=== PATIENT | female | born 1975 | race Caucasian/White ===

== ENCOUNTER 2018-05-23 18:39 | Inpatient (IN) | payer BC ==
[2018-05-23] VITALS (16 sets, daily range): BP systolic 96–142; BP diastolic 50–77; PULSE 64–84; TEMP 98.2–98.9
[~2018-05-23] VITALS: Ht 170.2 cm; Wt 81.4 kg
--- NOTE | 2018-05-23 18:45 | NUR ---
G1 at 38 weeks and 5 days arrives to unit ambulatory with complaint of leakage of fluid. Pt states she was at her appointment in the office and her water broke while she was there around 1814. Pt reports some vaginal bleeding, denies feeling contractions, and reports good movement. Pt denies headaches, visual changes, or RUQ pain. Pt oriented to room, call light within reach, and bed in low and blocked position. EFM and toco explained and applied. SVE /-3, amnitrace positive. Pt appears grossly ruptured with bloody fluid with SVE. Pt is an elective primary c/section. Dr. Sevilla notified.
--- NOTE | 2018-05-23 19:20 | NUR ---
Report received from PAUL Velazquez. Consents and assessment completed. Incision area prepped. 1950: Monitors off and pt ambulatory to OR. Spouse at pts side.
[2018-05-23 19:32] LABS: BASO % 0.3 % (0.0-2.0); EOS # 0.1 (0.0-0.7); EOS % 0.7 % (0-4.0); GRAN # 6.9 (1.4-6.5); GRAN % 75.2 % (42.2-75.2); HEMOGLOBIN 11.3 g/dl (12.5-16.0); LYMPH # 1.4 (1.2-3.4); LYMPH % 15.1 % (20.0-51.0); MEAN CELL VOLUME 87 fl (80.0-100.0); MEAN CORPUSCULAR HEMOGLOBIN 29 pg (27.0-31.0); MEAN CORPUSCULAR HGB CONC 34 g/dl (33.0-37.0); MEAN PLATELET VOLUME 10.3 fl (7.4-10.4); MONO # 0.7 (0.1-0.6); MONO % 7.5 % (1.7-9.3); PLATELET COUNT 251 K/mm3 (130-400); RED BLOOD COUNT 3.85 M/mm3 (4.10-5.30); REDCELL DISTRIBUTION WIDTH-CV 14.6 % (11.5-14.5)
[2018-05-23 19:37] LABS: HEMATOCRIT 33.6 % (37.0-47.0)
[2018-05-24 01:00] VITALS: BP 112/67; PULSE 72; TEMP 98.4
[2018-05-24 02:00] VITALS: BP 114/61; PULSE 66
[2018-05-24 07:55] VITALS: BP 109/66; PULSE 68; TEMP 98.5
--- NOTE | 2018-05-24 09:00 | NUR ---
Initial visit; Rosalba thanked for offering congratulations and God's blessings to her family for the of her son. thanked her for choosing [facility].
[2018-05-24 11:40] VITALS: BP 100/58; PULSE 75; TEMP 97.9
[2018-05-24] MEDS ORDERED: IBU600 MG PO (17:04)
[2018-05-24] MEDS ORDERED: PERCOCET 325 MG1 TA2 PO (17:05)
[2018-05-24 17:15] VITALS: BP 99/52; PULSE 71; TEMP 98.4
[2018-05-24 20:00] VITALS: BP 97/62; PULSE 67; TEMP 97.9
[2018-05-25 08:20] VITALS: BP 90/67; PULSE 72; TEMP 98.6
[2018-05-25 19:55] VITALS: BP 118/69; PULSE 80; TEMP 98.3
[2018-05-26 09:00] VITALS: BP 103/72; PULSE 88; TEMP 98.4
== END 2018-05-26 16:00 | disposition home or self-care (01) | DRG 788 ==
LOC: LDRO 18:39 → OB 20:08
PROVIDERS: ADMIT Obstetrics & Gynecology
PROC: 10D00Z1 Extraction of Products of Conception, Low, Open Approach (ICD-10-PCS; principal; 2018-05-23)
DX: O42.02 Full-term premature rupture of membranes, onset of labor within 24 hours of rupture (principal); Z3A.38 38 weeks gestation of pregnancy; Z37.0 Single live birth; O36.63X0 Maternal care for excessive fetal growth, third trimester, not applicable or unspecified; O99.02 Anemia complicating childbirth
CPT/HCPCS: J0690; J1885; J2270; J2370; J2405; J2590; J7120

== ENCOUNTER → 2020-12-03 | Outpatient (CLI) | payer BC ==
[~2020-12-03] MED LIST: IBU600 MG PO; PERCOCET 325 MG1 TA2 PO
== END ==
LOC: MC.RAD 14:00
DX: R91.8 Other nonspecific abnormal finding of lung field (principal)

== ENCOUNTER → 2023-04-13 | Outpatient (CLI) | payer BC | LOC: MC.RAD 17:00 | DX: Z12.31 Encounter for screening mammogram for malignant neoplasm of breast (principal); R59.0 Localized enlarged lymph nodes ==